=== PATIENT | male | born 1950 | race Caucasian/White ===

== ENCOUNTER 2017-08-18 08:41 | Outpatient (CLI) | payer MEDICARE ==
--- NOTE | 2017-08-18 10:44 | RAD ---
LUMBAR SPINE FOUR VIEWS INCLUDING AP AND LATERAL AND FLEXION AND EXTENSION VIEWS: HISTORY: Status post laminectomy (M54.16). FINDINGS: Four views of the lumbar spine demonstrate five [id number] lumbar vertebrae. Disk spaces demons trate minimal narrowing at the L2-L3 level. The vertebral bodies are unremarkable. No evidence of a nterolisthesis or retrolisthesis is seen. The osseous structures are intact. IMPRESSION: Unremarkable four views lumbar spine. Some degenerative changes seen at L2-L3. Osteophytes and disc space height loss also seen at L5-S1, anterolateral. POS: ISAIAS
== END 2017-08-18 08:42 | disposition home or self-care (01) ==
LOC: RAD 08:41
PROVIDERS: ATTEND Nurse Practitioner Family
DX: M96.1 Postlaminectomy syndrome, not elsewhere classified (principal); M47.896 Other spondylosis, lumbar region; M25.78 Osteophyte, vertebrae; R29.890 Loss of height
CPT/HCPCS: 72110

== ENCOUNTER 2017-09-15 16:43 | Inpatient (IN) | payer MEDICARE ==
[2017-09-15 17:15] VITALS: BMI 31.1
[2017-09-15] MEDS ORDERED: Acetaminophen 325 MG TAB PO PRN (17:52)
[2017-09-15] MEDS ORDERED: HYDROcodone/Acetaminophen 5/325 mg Tablet PO PRN (17:53)
[2017-09-15] MEDS ORDERED: Ondansetron HCl/PF 4 MG/2 ML Vial SLOW IVP PRN (17:54)
[2017-09-15] MEDS: Sodium Chloride 0.9% 1,000 ML IV SCH (18:20)
[2017-09-15] MEDS ORDERED: Prevnar 13-Val Conj/PF 0.5 ML SYRINGE IM ONE (19:00)
[2017-09-15 19:03] LABS: #Basophils 0.1 thou/uL (0.0-0.2); #Eosinphils 0.3 thou/uL (0.0-0.7); #Lymphocytes 2.4 thou/uL (1.20-3.40); #Monocytes 0.7 thou/uL (0.11-0.59); #Neutrophils 5.8 thou/uL (1.40-6.50); %Basophils 0.8 % (0.0-1.0); %Eosinophils 3.6 % (0.0-10.0); %Lymphocytes 25.8 % (21.0-51.0); %Monocytes 7.3 % (0.0-10.0); %Neutrophils 62.6 % (42.0-75.0); Hemoglobin 17.8 g/dL (14.0-18.0); Mean Corpuscular Hemoglobin 31.1 pg (27.0-31.0); Mean Corpuscular Volume 94.4 fL (78.0-98.0); Mean Platelet Volume 6.8 fL (7.4-10.4); Platelet Count 185 thou/uL (130-400); RBC Distribution Width 12.6 % (11.5-14.5); Red Blood Cell (RBC) Count 5.73 mill/uL (4.70-6.10); White Blood Cell (WBC) Count 9.2 thou/uL (4.8-10.8)
[2017-09-15 19:15] LABS: PTT 30.9 SEC (22.9-36.1); Prothrombin Time 12.9 SEC (12.0-14.7)
[2017-09-15 19:19] LABS: Anion Gap 13 mmol/L (10-20); BUN (Urea Nitrogen) 29 mg/dL (8.4-25.7); Calc. Creatinine Clearance 89 mL/min (70-130); Carbon Dioxide 24 mmol/L (23-31); Chloride 109 mmol/L (98-107); Estimated GFR-MDRD 67; Glucose 98 mg/dL (80-115); Potassium 4.3 mmol/L (3.5-5.1); Sodium 142 mmol/L (136-145)
[2017-09-15] MEDS ORDERED: HumaLOG 300 UNITS/3 ML VIAL SC PRN (21:51)
[2017-09-15] MEDS ORDERED: Dextrose 50% Abboject 50 ML SYRINGE SLOW IVP PRN (21:51)
[2017-09-15] MEDS ORDERED: Dextrose 5% in Water 1,000 ML IV PRN (21:51)
[2017-09-15] MEDS ORDERED: Atorvastatin Calcium 40 MG TAB PO SCH (22:15)
[2017-09-15] MEDS ORDERED: Gabapentin 300 MG CAP PO SCH (22:15)
[2017-09-16] MEDS: traMADol HCl 50 MG TAB PO PRN (01:24)
--- NOTE | 2017-09-16 02:15 | CON ---
DATE OF CONSULTATION: 09/15/2017 CHIEF COMPLAINT: Radicular pain. HISTORY OF PRESENT ILLNESS: This patient is a 66-year-old male who presented with hospital on this o ccasion primarily because of pain. The patient had a lumbar laminectomy performed in 04/2016 and did well with that; however, about 7 weeks ago, the patient was sitting in a chair that collapsed undern eath him and he fell to the ground hitting his back side. At that time, the patient started experien cing pain again. He had follow up including an MRI that apparently revealed reherniation at L5. The patient was undergoing physical therapy and had some epidural injections, but his pain has persisted . It is to the point that he describes it as a 7/10 cramp-like pain down the posterior right leg and on the dorsum of the foot. With much flexion at the waist, he developed some numbness and tingling on the dorsum of the right foot. He is most comfortable lying on his back, at which time he only has 3-4/10 pain. He does have some associated numbness in the right dorsum of the foot, but he has no c hanges in bowel or bladder continence. REVIEW OF SYSTEMS: Patient believes he has lost about 17 pounds since the 07/11/2017 that is based o n weight obtain that his hash slinger's office and the weight that he had here. He believes that is appropriate in that, he is not being like he normally does. He also reported some constipation wi th some pain meds, but that is resolved with some stool softeners. Other than that a ten-system revi ew is negative except for those things mentioned in the history of present illness. PAST MEDICAL HISTORY: Notable for hypertension, prediabetes, hypothyroidism, status post thyroidecto my. He has hyperlipidemia and a history of thyroid cancer and radioactive iodine ablation. PAST SURGICAL HISTORY: The patient had the above-mentioned lumbar laminectomy. He has also had thyr oidectomy, initially had a hemithyroidectomy as this was felt to be benign. However, pathology prove d that it was in fact thyroid cancer. He subsequently had a full thyroidectomy. He has also had a c holecystectomy and hernia repair. FAMILY HISTORY: Father at 72, Parkinson's disease. Mother at 86 with a hemorrhagic CVA wh ile on Coumadin. His brother had prostate cancer. SOCIAL HISTORY: Patient is a nontobacco user. He drinks 1-2 beers per week. He has no drugs. He i s . His , Suzanne would be his surrogate decision maker should that become necessary. CODE STATUS: He is FULL CODE. PHYSICAL EXAMINATION: VITAL SIGNS: Temperature 97.8, pulse 58, respirations 16, O2 sat 92% on room air, BP is 121/72. GENERAL APPEARANCE: Age appropriate male in no distress. 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 HEENT: PERRL, EOMI, anicteric sclerae. NECK: No OP lesions. NECK: Supple and symmetric with no lymphadenopathy, no thyroid palpable. Trachea is midline. CARDIOVASCULAR: Regular rate and rhythm without murmurs, gallops, or rubs. LUNGS: Clear to auscultation bilaterally with good chest wall expansion and air exchange. ABDOMEN: Soft, nontender, nondistended, positive bowel sounds, no masses, no organomegaly. EXTREMITIES: Warm and dry. NEUROLOGIC: The patient seems to have normal sensation throughout. He has 5/5 strength throughout, although he does have a positive straight leg raise to about 10 degrees on the right. LABORATORY DATA: White count 9.2, hemoglobin 17.8, platelets 185. INR 1.0, PTT 30.9. Sodium 142, p otassium 4.3, chloride 109, CO2 is 24, BUN 29, creatinine is 1.09, glucose 98. ASSESSMENT AND PLAN: 1. Lumbar radiculopathy. Patient has surgery planned for 09/17/2017. In the meantime, the patient has been struggling with pain to the point that he required hospitalization for IV pain management. He is receiving IV morphine and seems to be managing well with that. 2. Patient is a prediabetic on Glucophage. 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 We will continue Accu-Cheks and provide s ome sliding scale insulin. 3. Hypertension. Currently, the patient's blood pressure is well controlled. He is resumed on his usual home medications. 4. Hyperlipidemia. Patient is back on his usual home statin. Recommend continue that. 5. Hypothyroidism, post-surgical, continue with thyroid replacement. 6. Patient has EKG pending. If patient has no contraindications to surgery; however, that EKG will need to be reviewed once it was obtained in the morning. I appreciate the opportunity to participate in this patient's care.
[2017-09-16] MEDS: Levothyroxine 150 MCG TAB PO SCH (05:54)
[2017-09-16] MEDS: Sodium Chloride 0.9% 1,000 ML IV SCH ×2 (05:57→21:39)
[2017-09-16] MEDS: HYDROcodone/Acetaminophen 5/325 mg Tablet PO PRN ×4 (07:35→21:33)
[2017-09-16] MEDS: Losartan 25 MG TAB PO SCH ×2 (07:36→21:26)
[2017-09-16] MEDS: Gabapentin 300 MG CAP PO SCH ×3 (07:36→21:25)
[2017-09-16] MEDS: Nebivolol HCl 5 MG TAB PO SCH (07:37)
[2017-09-16] MEDS ORDERED: Canagliflozin [Invokana] 300 MG PO SCH (09:00)
[2017-09-16] MEDS ORDERED: Docusate 100 MG CAP PO PRN (12:21)
[2017-09-16] MEDS ORDERED: Milk Of Magnesia 30 ML UDCUP PO PRN (12:22)
[2017-09-16] MEDS: Atorvastatin Calcium 40 MG TAB PO SCH (21:26)
[2017-09-16] MEDS: Amlodipine 5 MG TAB PO SCH (21:27)
[2017-09-17] MEDS: HYDROcodone/Acetaminophen 5/325 mg Tablet PO PRN ×3 (05:17→22:03)
[2017-09-17] MEDS: Nebivolol HCl 5 MG TAB PO SCH (05:18)
[2017-09-17] MEDS: Levothyroxine 150 MCG TAB PO SCH (05:18)
[2017-09-17] MEDS: Sodium Chloride 0.9% 1,000 ML IV SCH ×2 (05:20→23:18)
--- NOTE | 2017-09-17 08:34 | PRG ---
DATE OF SERVICE: 09/16/2017 Anil Stewart PA-C dictating for Dr. Damian Virk. SUBJECTIVE: Mr. Tidwell is now hospital day #1, having recurrent leg pain and weakness over the past se veral weeks. The patient is scheduled for a revision right L4-L5 hemilaminotomy and [facility]kectomy [facility]. Patient has good strength in the bilateral lower extremities. He states his pain is much toby r controlled with the current pain medication regimen. I have ordered n.p.o. at midnight, but the paulie ochoa is ready to proceed with surgery. He has been cleared by our Hospitalist colleagues other than review of patient's EKG; however, the patient notes that there was some T-wave abnormality noted, bu t this has, he states, been present since he was a child. Again, we will plan to proceed with surgery as scheduled tomorrow and I remind the patient again to be n.p.o. Please call with any changes in p atient's neurologic status.
[2017-09-17] MEDS: Losartan 25 MG TAB PO SCH ×2 (10:31→20:54)
[2017-09-17] MEDS: Gabapentin 300 MG CAP PO SCH ×3 (10:31→20:57)
[2017-09-17] MEDS ORDERED: CEFAZOLIN/Water 2 GM/20 ML SYRINGE ONE (10:51)
[2017-09-17] MEDS ORDERED: Sodium Chloride 0.9% 10 ML ONE (11:46)
[2017-09-17] MEDS ORDERED: Thrombin 5000 UNITS/5 ML VIAL ONE (11:46)
[2017-09-17] MEDS ORDERED: Bacitracin Zinc Ointment 30 gm TUBE ONE (11:47)
[2017-09-17] MEDS ORDERED: Fentanyl 100 MCG/2 ML VIAL ONE ×5 (12:10→15:09)
[2017-09-17] MEDS ORDERED: PHENYLEPHRINE-NS 100 MCG/ML 10 ML SYRINGE ONE (13:15)
[2017-09-17] MEDS ORDERED: PROPOFOL 200 MG/20 ML VIAL ONE (13:15)
[2017-09-17] MEDS ORDERED: Lidocaine 1% PF 5 ML VIAL ONE (13:15)
[2017-09-17] MEDS ORDERED: Ondansetron HCl/PF 4 MG/2 ML Vial ONE (13:15)
[2017-09-17] MEDS ORDERED: Glycopyrrolate 0.2 MG/ML 5 ML SYRINGE ONE (13:15)
[2017-09-17] MEDS ORDERED: Ondansetron HCl/PF 4 MG/2 ML Vial IVP PRN (14:25)
[2017-09-17] MEDS ORDERED: Promethazine HCl 25 MG/ML VIAL IM PRN (14:25)
[2017-09-17] MEDS ORDERED: Promethazine HCl 25 MG/ML VIAL SLOW IVP PRN (14:25)
[2017-09-17] MEDS ORDERED: HYDROmorphone 2 MG/ML VIAL SLOW IVP PRN (14:25)
[2017-09-17] MEDS: CEFAZOLIN/Water 2 GM/20 ML SYRINGE SLOW IVP SCH (19:31)
[2017-09-17] MEDS: tiZANidine HCl 4 MG TAB PO PRN (19:31)
[2017-09-17] MEDS: Amlodipine 5 MG TAB PO SCH (20:54)
[2017-09-17] MEDS: Atorvastatin Calcium 40 MG TAB PO SCH (20:56)
[2017-09-17] MEDS ORDERED: CEFAZOLIN 2 GM in Sodium Chloride 0.9% 100 ML IVPB SCH (22:00)
[2017-09-18] MEDS: traMADol HCl 50 MG TAB PO PRN ×3 (00:38→12:24)
[2017-09-18] MEDS ORDERED: Mag-Al 1200 mg/1200 mg/30 ML UDCUP PO PRN (01:04)
[2017-09-18] MEDS: Calcium Carbonate 500 MG ChewTAB PO PRN ×2 (01:17→05:41)
[2017-09-18] MEDS: HYDROcodone/Acetaminophen 5/325 mg Tablet PO PRN ×2 (04:13→08:59)
[2017-09-18] MEDS: CEFAZOLIN/Water 2 GM/20 ML SYRINGE SLOW IVP SCH (04:16)
[2017-09-18] MEDS: Levothyroxine 150 MCG TAB PO SCH (05:41)
[2017-09-18 07:55] VITALS: TEMP 97.9
[2017-09-18] MEDS: Losartan 25 MG TAB PO SCH (08:57)
[2017-09-18] MEDS: Gabapentin 300 MG CAP PO SCH (08:58)
[2017-09-18] MEDS: Nebivolol HCl 5 MG TAB PO SCH (08:58)
--- NOTE | 2017-09-18 10:34 | PRG ---
DATE OF SERVICE: 09/18/2017 Mr. Tidwell is only third day of his hospital stay following lumbar diskectomy with Dr. Virk. He is d oing very well. He did have some drainage from his incision. So, we will change that dressing befor e discharge and then plan to see him in 2 weeks. James Alberto PA-C., dictating for Dr. Mccabe.
[2017-09-18] MEDS: tiZANidine HCl 4 MG TAB PO PRN (12:24)
[2017-09-18 12:36] VITALS: BP 134/81
--- NOTE | 2017-09-20 09:33 | OP ---
DATE OF SURGERY: 09/17/2017 SURGEON: Damian Virk M.D. COMMERCIAL JOURNEYMAN ELECTRICIAN: Anil Stewart PA-C. PREPROCEDURE DIAGNOSES: Recurrent right L5 radiculopathy with recurrent right L4-L5 disk extrusion. POSTPROCEDURE DIAGNOSES: Recurrent right L5 radiculopathy with recurrent right L4-L5 disk extrusion. PROCEDURE: 1. Revision right L4-L5 hemilaminotomy, foraminotomy, and diskectomy. 2. Use of operative microscope for microdissection. DESCRIPTION OF PROCEDURE: After informed consent was obtained from the patient, the patient brought to OR. Proper patient pause and identification was carried out. He was placed in excellent general endotracheal anesthesia and positioned prone on the OR table. The prior L4-L5 wound was identified. This region was sterilely cleansed, prepared and draped. Proper patient pause and identification wa s carried out. The wound was then opened with a combination of sharp, monopolar and blunt dissection and the right L4-L5 segment was exposed. Revision hemilaminotomy and foraminotomy was performed fol lowing localization. Microscope was then brought in the field for microdissection. Working over the shoulder of the traversing right L5 nerve root, we identified extruded disk material, this was remov ed. We assured ourselves of freedom of any other of the exiting right L4 and the traversing right L5 nerve root by removing any other soft free fragments. Copious irrigation occurred throughout as did maximizing hemostasis. There was no spinal fluid leak. The wound was then closed in anatomic layer s following the sprinkling of vancomycin powder. The patient then emerged from anesthesia.
== END 2017-09-18 13:41 | disposition home or self-care (01) | DRG 520 ==
LOC: T4-A 16:43 → SURG A 09-17 15:50
PROVIDERS: ADMIT Surgery; ATTEND Surgery
PROC: 0SB23ZZ Excision of Lumbar Vertebral Disc, Percutaneous Approach (ICD-10-PCS; principal; 2017-09-17)
DX: M51.16 Intervertebral disc disorders with radiculopathy, lumbar region (principal); I10 Essential (primary) hypertension; E11.9 Type 2 diabetes mellitus without complications; Z79.84 Long term (current) use of oral hypoglycemic drugs; E03.9 Hypothyroidism, unspecified; E78.5 Hyperlipidemia, unspecified; Z85.850 Personal history of malignant neoplasm of thyroid; E66.9 Obesity, unspecified; Z68.31 Body mass index [BMI] 31.0-31.9, adult
CPT/HCPCS: 36415; 36416; 64483; 76001; 80048; 85025; 85610; 85730; 90471; 90670; 93005; 93010; A4216; G0009; J0131; J1040; J2001; J2270; J2405; J2704; J3010; J3370; J3490; S0020